=== PATIENT | female | born 1940 | race Caucasian/White ===

== ENCOUNTER 2017-01-15 08:58 | Outpatient (CLI) | payer MEDICARE, OTHER ==
[2017-01-15 09:31] LABS: Hemoglobin A1c 5.6 % (4.0-6.0)
[2017-01-15 09:37] LABS: ALT (SGPT) 15 U/L (8-55); AST (SGOT) 19 U/L (5-34); Albumin 3.5 g/dL (3.4-4.8); Alkaline Phosphatase 82 U/L (40-150); Anion Gap 14 mmol/L (10-20); BUN (Urea Nitrogen) 10 mg/dL (9.8-20.1); Bilirubin, Total 0.6 mg/dL (0.2-1.2); Calc. Creatinine Clearance 0 mL/min (70-130); Calcium 9.1 mg/dL (7.8-10.44); Carbon Dioxide 30 mmol/L (23-31); Cardiac Risk 3.6 (Less than 4.5); Chloride 97 mmol/L (98-107); Cholesterol 169 mg/dl (< 200 Desired); Estimated GFR-MDRD 82; Globulin 2.6 g/dL (2.4-3.5); Glucose 118 mg/dL (83-110); HDL Cholesterol 47 mg/dL (>60 Neg Risk); LDL Cholesterol, Calculated 101 mg/dL; Protein, Total 6.1 g/dL (6.0-8.3); Sodium 137 mmol/L (136-145); Triglycerides 104 mg/dL (Less than 150)
== END 2017-01-15 08:59 | disposition home or self-care (01) ==
LOC: MADLABBHPM 08:58
PROVIDERS: ATTEND Family Medicine
DX: E78.2 Mixed hyperlipidemia (principal); R73.09 Other abnormal glucose; E89.0 Postprocedural hypothyroidism
CPT/HCPCS: 36415; 80053; 80061; 83036; 84443

== ENCOUNTER 2019-12-03 13:44 | Emergency (ER) | payer MEDICARE, OTHER ==
[~2019-12-03 13:44] MED LIST: Sodium Chloride 0.9% 1,000 ML BAG ONE
[2019-12-03] MEDS ORDERED: Acetaminophen 500 MG TAB ONE (14:31)
[2019-12-03 14:35] LABS: #Basophils 0.1 thou/uL (0.0-0.2); #Lymphocytes 0.6 thou/uL (1.20-3.40); #Monocytes 0.6 thou/uL (0.11-0.59); #Neutrophils 7.6 thou/uL (1.40-6.50); %Basophils 0.7 % (0.0-1.0); %Eosinophils 0.5 % (0.0-10.0); %Lymphocytes 7.1 % (21.0-51.0); %Neutrophils 84.7 % (42.0-75.0); Hemoglobin 11.5 g/dL (12.0-16.0); Mean Corpuscular HGB CONC 32.6 g/dL (32.0-36.0); Mean Corpuscular Hemoglobin 30.5 pg (27.0-31.0); Mean Corpuscular Volume 93.4 fL (78.0-98.0); Mean Platelet Volume 6.1 fL (7.4-10.4); Platelet Count 294 thou/uL (130-400); RBC Distribution Width 13.5 % (11.5-14.5); Red Blood Cell (RBC) Count 3.78 mill/uL (4.20-5.40)
--- NOTE | 2019-12-03 14:41 | RAD ---
CHEST 1 VIEW: Date: 12/03/2019 HISTORY: Cough. COMPARISON: 02/10/2011. FINDINGS: Increased bronchovascular markings and evidence for bilateral vascular congestion with borderline car diomegaly. Subtle increased density over the right mid lung zone raising concern for minimal or early pneumonia. Costophrenic angle blunting bilaterally. Arthrosis changes of the left shoulder, progress freeman from prior study. IMPRESSION: Increased bronchovascular markings and evidence for some bilateral vascular congestion. Minimal cardi omegaly. Subtle area of minimal homogeneous opacity in the right mid lateral lung concern concerning for early pneumonia. Short-term follow-up suggested. POS: Melony
[2019-12-03 14:46] LABS: Bilirubin Negative (Negative); Blood, Urine Negative (Negative); Clarity Clear (Clear); Glucose, Urine (Dipstick) Negative (Negative); Leukocyte Negative (Negative); Nitrite Negative (Negative); Protein, Urine (Dipstick) Negative (Neg-Trace); Urobilinogen 0.2 mg/dL (Less than 2)
[2019-12-03 14:50] LABS: ALT (SGPT) 24 U/L (8-55); AST (SGOT) 24 U/L (5-34); Albumin 3.4 g/dL (3.4-4.8); Alkaline Phosphatase 71 U/L (40-110); Anion Gap 15 mmol/L (10-20); BUN (Urea Nitrogen) 16 mg/dL (9.8-20.1); Bilirubin, Total 0.5 mg/dL (0.2-1.2); Calc. Creatinine Clearance 0 mL/min (70-130); Calcium 8.5 mg/dL (7.8-10.44); Carbon Dioxide 29 mmol/L (23-31); Chloride 91 mmol/L (98-107); Estimated GFR-MDRD 83; Globulin 2.8 g/dL (2.4-3.5); Glucose 119 mg/dL (83-110); Potassium 3.9 mmol/L (3.5-5.1); Protein, Total 6.2 g/dL (6.0-8.3); Sodium 131 mmol/L (136-145)
--- NOTE | 2019-12-03 16:34 | CT ---
CT BRAIN 12/03/19 PROVIDED CLINICAL HISTORY: Altered mental status. FINDINGS: The ventricular system appears normal in size and morphology. There is no evidence for intracranial h emorrhage or mass effect. Chronic microvascular ischemic changes are seen involving the cerebral whit e matter. There is partial opacification of the right sided ethmoid air cells and maxillary sinus as well as near complete opacification of the right maxillary sinus. Vascular calcifications are seen. T he occipital skull is incompletely imaged on this examination. The visualized osseous structures demo nstrate no acute findings. IMPRESSION: 1. No evidence for intracranial hemorrhage or mass effect. 2. Paranasal sinus mucosal disease as described. POS: KATI
== END 2019-12-03 17:29 | disposition short-term general hospital (02) ==
LOC: MADERS 13:44
DX: J18.9 Pneumonia, unspecified organism (principal); Z20.828 Contact with and (suspected) exposure to other viral communicable diseases; I10 Essential (primary) hypertension; E78.5 Hyperlipidemia, unspecified; E78.00 Pure hypercholesterolemia, unspecified; Z79.899 Other long term (current) drug therapy
CPT/HCPCS: 51701; 70450; 71045; 80053; 81003; 83605; 85025; 87040; 87086; 87633; 87798 ×2; 87804 ×2; 96365; 96366; 99285; J1956; U0002; 87635; A4353; J7050

== ENCOUNTER 2020-01-03 10:13 | Outpatient (CLI) | payer MEDICARE, OTHER ==
[2020-01-03 10:52] LABS: #Eosinphils 0.2 thou/uL (0.0-0.7); #Lymphocytes 0.9 thou/uL (1.20-3.40); #Monocytes 0.4 thou/uL (0.11-0.59); #Neutrophils 3.6 thou/uL (1.40-6.50); %Basophils 0.8 % (0.0-1.0); %Eosinophils 4.3 % (0.0-10.0); %Lymphocytes 17.4 % (21.0-51.0); %Monocytes 8.3 % (0.0-10.0); %Neutrophils 69.2 % (42.0-75.0); Hemoglobin 10.7 g/dL (12.0-16.0); Mean Corpuscular HGB CONC 32.1 g/dL (32.0-36.0); Mean Corpuscular Hemoglobin 29.8 pg (27.0-31.0); Mean Platelet Volume 6.1 fL (7.4-10.4); Platelet Count 361 thou/uL (130-400); RBC Distribution Width 13.7 % (11.5-14.5); White Blood Cell (WBC) Count 5.1 thou/uL (4.8-10.8)
[2020-01-03 10:57] LABS: ALT (SGPT) 22 U/L (8-55); AST (SGOT) 20 U/L (5-34); Albumin 3.2 g/dL (3.4-4.8); Alkaline Phosphatase 81 U/L (40-110); Anion Gap 13 mmol/L (10-20); BUN (Urea Nitrogen) 17 mg/dL (9.8-20.1); Bilirubin, Total 0.3 mg/dL (0.2-1.2); Calc. Creatinine Clearance 0 mL/min (70-130); Calcium 8.4 mg/dL (7.8-10.44); Carbon Dioxide 26 mmol/L (23-31); Cardiac Risk 3.2 (Less than 4.5); Chloride 97 mmol/L (98-107); Cholesterol 179 mg/dl (< 200 Desired); Estimated GFR-MDRD 86; Globulin 2.6 g/dL (2.4-3.5); Glucose 134 mg/dL (83-110); HDL Cholesterol 56 mg/dL (>60 Neg Risk); LDL Cholesterol, Calculated 104 mg/dL; Potassium 4.2 mmol/L (3.5-5.1); Protein, Total 5.8 g/dL (6.0-8.3); Sodium 132 mmol/L (136-145); Triglycerides 93 mg/dL (Less than 150)
--- NOTE | 2020-01-03 11:15 | RAD ---
Right RIBS 3 views HISTORY: Fall. Injury. FINDINGS: No displaced rib fracture or pneumothorax are demonstrated.
--- NOTE | 2020-01-03 12:10 | RAD ---
EXAM: CHEST ONE VIEW HISTORY: Injury after fall 2 days ago. COMPARISON: 12/10/2019 FINDINGS: Cardiac silhouette is mildly enlarged. Pulmonary vasculature is within normal limits. Calcified granu brigido is again seen in the right upper lung zone. There is persistent blunting of the right lateral costophrenic angle, but this is also seen on the prior study in 2011 and is likely related to pleural and parenchymal scarring. No new area of consolidation or pleural effusion is seen. Severe left glenohumeral osteoarthropathy is present with degenerative changes noted in the spine. Remote left-si ded rib fracture is present. Vascular calcifications are seen in thoracic aorta. There has been no interval change compared to prior exam. IMPRESSION: 1. No acute cardiopulmonary process. 2. Mild chronic lung changes. 3. Mild cardiomegaly.
--- NOTE | 2020-01-03 12:59 | RAD ---
LEFT RIB SERIES: HISTORY: Fall, left-sided rib pain. FINDINGS/IMPRESSION: There are marked degenerative changes in the shoulder joint. There are fractures involving the left 7th and 8th ribs. POS: [facility]
== END 2020-01-03 10:14 | disposition home or self-care (01) ==
LOC: MADRAD 10:13
PROVIDERS: ATTEND Family Medicine
DX: I50.20 Unspecified systolic (congestive) heart failure (principal); D72.819 Decreased white blood cell count, unspecified; I10 Essential (primary) hypertension; E78.2 Mixed hyperlipidemia; E89.0 Postprocedural hypothyroidism; R07.81 Pleurodynia; S22.42XA Multiple fractures of ribs, left side, initial encounter for closed fracture; J98.4 Other disorders of lung; I51.7 Cardiomegaly; M19.019 Primary osteoarthritis, unspecified shoulder; W18.30XA Fall on same level, unspecified, initial encounter
CPT/HCPCS: 36415; 71045; 80053; 80061; 84443; 85025

== ENCOUNTER 2020-01-19 11:50 | Emergency (ER) | payer MEDICARE, OTHER ==
[2020-01-19 12:18] LABS: #Basophils 0.1 thou/uL (0.0-0.2); #Eosinphils 0.2 thou/uL (0.0-0.7); #Monocytes 0.5 thou/uL (0.11-0.59); #Neutrophils 3.3 thou/uL (1.40-6.50); %Basophils 1.2 % (0.0-1.0); %Eosinophils 3.1 % (0.0-10.0); %Lymphocytes 20.2 % (21.0-51.0); %Monocytes 10.1 % (0.0-10.0); %Neutrophils 65.4 % (42.0-75.0); Hemoglobin 10.3 g/dL (12.0-16.0); Mean Corpuscular HGB CONC 31.5 g/dL (32.0-36.0); Mean Corpuscular Hemoglobin 28.8 pg (27.0-31.0); Mean Corpuscular Volume 91.4 fL (78.0-98.0); Mean Platelet Volume 5.9 fL (7.4-10.4); Platelet Count 324 thou/uL (130-400); RBC Distribution Width 13.3 % (11.5-14.5); Red Blood Cell (RBC) Count 3.58 mill/uL (4.20-5.40); White Blood Cell (WBC) Count 5.1 thou/uL (4.8-10.8)
--- NOTE | 2020-01-19 12:19 | CT ---
CT OF THE BRAIN WITHOUT CONTRAST: Date: 01/19/2020 INDICATION: History of 79-year-old female with left-sided weakness since 0630 hours this morning. COMPARISON: Prior exam dated 12/10/2019. FINDINGS: Again seen is mild generalized cerebral and cerebellar atrophy. There is moderate to severe chronic s mall vessel white matter ischemic change. Septum pellucidum and third ventricle are midline. No defin ite acute infarct, hemorrhage, or hydrocephalus is present. There is lessening of the air fluid level s seen involving the right maxillary sinus with improvement of the mucosal thickening involving the p aranasal sinuses. Mastoid air cells are clear. IMPRESSION: 1. No acute intracranial abnormality. 2. Stable chronic small vessel white matter ischemic change. 3. Improving paranasal sinus disease. POS: ANU
[2020-01-19] MEDS ORDERED: Aspirin 300 MG Suppository ONE (12:32)
[2020-01-19 12:37] LABS: ALT (SGPT) 36 U/L (8-55); AST (SGOT) 30 U/L (5-34); Albumin 3.3 g/dL (3.4-4.8); Alkaline Phosphatase 85 U/L (40-110); Anion Gap 13 mmol/L (10-20); BUN (Urea Nitrogen) 17 mg/dL (9.8-20.1); Bilirubin, Total 0.4 mg/dL (0.2-1.2); CK (CPK) 93 U/L (29-168); Calc. Creatinine Clearance 0 mL/min (70-130); Calcium 8.3 mg/dL (7.8-10.44); Carbon Dioxide 26 mmol/L (23-31); Chloride 95 mmol/L (98-107); Estimated GFR-MDRD 83; Globulin 2.6 g/dL (2.4-3.5); Glucose 97 mg/dL (83-110); Potassium 4.1 mmol/L (3.5-5.1); Protein, Total 5.9 g/dL (6.0-8.3); Sodium 130 mmol/L (136-145)
[2020-01-19 12:38] LABS: INR-International Normal Ratio 1.3; PTT 31.3 sec (22.9-36.1); Prothrombin Time 16.3 sec (12.0-14.7)
--- NOTE | 2020-01-19 12:47 | CT ---
CT arteriogram neck with IV contrast and 3-D imaging CT arteriogram head with IV contrast and 3-D imaging HISTORY: Left-sided weakness. CVA. FINDINGS: Good contrast opacification of the aortic arch with bovine origin of the great vessels and arterial calcification. The descending aorta is diffusely dilated up to 5.0 cm. Good flow into each carotid and vertebral system. At the right carotid bifurcation, there is prominent calcification. Internal carotid artery is widely patent. There is high-grade stenosis at the origin of the external carotid artery. At the left carotid bifurcation, mild calcification is present without significant stenosis. [place] is intact. Calcification of the supraclinoid ICAs. No focal aneurysm, stenosis, or t hrombosis. No enhancing brain lesions evident. Inferior images show calcified plaque within the anterior aspect of the upper right hemithorax. Small amount of fluid layers within the dependent portion of the right maxillary sinus. IMPRESSION : No acute vascular abnormalities are demonstrated. Diffuse dilatation of the ascending aorta up to 5.0 cm. Atherosclerosis. Incidental note of stenosis at the origin of the right external carotid artery. Inte rnal carotid arteries are patent. Right maxillary sinusitis. Findings were called to Dr. Rich in the [place] emergency department 1235 hours. Code CR.
--- NOTE | 2020-01-19 12:48 | RAD ---
Chest one view HISTORY: Altered mental status. Dyspnea. COMPARISON: 01/03/2020. FINDINGS: Cardiac silhouette remains magnified and enlarged. Pulmonary vasculature remains upper limi ts of normal. Mediastinum is midline with aortic calcification. Calcified granulomata are consistent with healed gr anulomatous disease. No lobar consolidation or evidence of pneumothorax. There are prominent degenerative changes of each shoulder. air sampling and monitoring leads overlie the chest. IMPRESSION : Borderline pulmonary vascular congestion and other chronic-type findings are stable. No active cardiopulmonary abnormalities are demonstrated.
[2020-01-19] MEDS ORDERED: Iopamidol 370 76% 125 ML VIAL FS ONE (13:14)
== END 2020-01-19 12:50 | disposition short-term general hospital (02) ==
LOC: MADERS 11:50
DX: I82.462 Acute embolism and thrombosis of left calf muscular vein (principal); I25.2 Old myocardial infarction; E03.9 Hypothyroidism, unspecified; E78.5 Hyperlipidemia, unspecified; E78.00 Pure hypercholesterolemia, unspecified; I10 Essential (primary) hypertension; Z79.899 Other long term (current) drug therapy
CPT/HCPCS: 36415; 36416; 70450; 70496; 70498; 71045; 80053; 82550; 84484; 85025; 85610; 85730; 93005; 94760; Q9967

== ENCOUNTER 2020-02-11 09:49 | Outpatient (CLI) | payer MEDICARE, OTHER ==
[2020-02-11 10:28] LABS: Anion Gap 17 mmol/L (10-20); BUN (Urea Nitrogen) 12 mg/dL (9.8-20.1); Calc. Creatinine Clearance 0 mL/min (70-130); Calcium 9.4 mg/dL (7.8-10.44); Carbon Dioxide 24 mmol/L (23-31); Chloride 96 mmol/L (98-107); Estimated GFR-MDRD 82; Glucose 92 mg/dL (83-110); Potassium 4.4 mmol/L (3.5-5.1); Sodium 133 mmol/L (136-145)
== END 2020-02-11 09:50 | disposition home or self-care (01) ==
LOC: MADLABSP 09:49
PROVIDERS: ATTEND Family Medicine
DX: R60.0 Localized edema (principal)
CPT/HCPCS: 80048

== ENCOUNTER 2020-02-28 17:15 | Inpatient (IN) | payer MEDICARE, OTHER ==
[2020-02-28] MEDS: Mirtazapine 15 MG TAB PO SCH (21:16)
[2020-02-28] MEDS: Atorvastatin Calcium 10 MG TAB PO SCH (21:16)
[2020-02-28] MEDS: Carvedilol 3.125 MG TAB PO SCH (21:17)
[2020-02-28] MEDS: Heparin 5,000 UNITS/ML VIAL SC SCH (21:17)
[2020-02-29] MEDS: Acetaminophen 325 MG TAB PO PRN (01:37)
[2020-02-29] MEDS: Levothyroxine Sodium 125 MCG TAB PO SCH (05:43)
[2020-02-29] MEDS ORDERED: Furosemide 40 MG TAB PO SCH (06:00)
[2020-02-29] MEDS: Aspirin 81 mg Enteric Coated Tablet PO SCH ×2 (08:36→08:39)
[2020-02-29] MEDS: Carvedilol 3.125 MG TAB PO SCH ×2 (08:36→19:53)
[2020-02-29] MEDS: Lisinopril 5 MG TAB PO SCH (08:36)
[2020-02-29] MEDS: Furosemide 40 MG TAB PO SCH (08:38)
[2020-02-29] MEDS: Oxybutynin ER 5 MG TAB PO SCH (08:39)
[2020-02-29] MEDS: Heparin 5,000 UNITS/ML VIAL SC SCH ×3 (08:40→19:53)
--- NOTE | 2020-02-29 08:57 | HP ---
REASON FOR ADMISSION: Skilled rehab in [facility] after recent hospitalization. HISTORY OF PRESENT ILLNESS AND HOSPITAL COURSE: Ms. Hall is an 79-year-old female with significant history of dementia, hypertension, hypothyroidism, dyslipidemia, and systolic heart failure. The patient was brought to the ER on 02/22/2020 for altered mental status/unresponsiveness. On further evaluation, she was found to be severely hyponatremic. Her hyponatremia was attributed to multiple factors. She has been on diuretics for persistent volume retention and her Lasix has been titrated up lately for worsening bilateral leg edema and increasing weight. She was also reported by the family that she is not eating much lately despite of the mirtazapine use. Her MRI of the brain did not show any acute abnormalities. Nephrology was consulted and was diagnosed to have SIADH. The patient was treated appropriately in the hospital and was deemed hemodynamically stable to be discharged thereafter. Her sodium improved significantly from admitting sodium level at 121 to 134 upon discharge. The patient was treated with fluid restriction and increased solute intake. There was a recommendation not to be on thiazide, but to continue on Lasix. Of note, the patient had never been on thiazide per home medication, but has been only on Lasix. The patient was severely deconditioned and deemed to benefit further for skilled rehab prior to going back to the home environment,thus she was transferred to [facility]. When admitted to [facility] for skilled rehab, the patient was awake, alert, confused, but able to answer simple questions and express her needs. She is on pureed diet and nectar thickened liquids per transfer order. She was eating dinner on her own when seen. States that she was happy she is in [place] again. No other issues at this time. PAST MEDICAL HISTORY: Hypertension; hypothyroidism; dyslipidemia; systolic congestive heart failure; dementia; adult failure to thrive; borderline diabetes , on dietary management only; history of degenerative joint disease; PAD, on long- term use of antithrombotics/antiplatelet. Overactive bladder, anemia of chronic illness, esophageal stricture, paroxysmal atrial fibrillation in 01/2020, and TIA. PAST SURGICAL HISTORY: Laparoscopic colon resection in 2008, cataract surgery, esophageal dilatation, colonoscopy, found to have polyps, cardiac cath by Dr. Kwon on 03/30/2014. FAMILY HISTORY: Mother is , diabetic. Father is diseased, unknown. Siblings with four brothers and four sisters of an unknown health condition. SOCIAL HISTORY: The patient is . She lives with her , who serves as her primary caregiver. The patient's daughter, Ira and her son-in-law are current primary caretakers of both patient and spouse. She is nonsmoker. Denies alcohol intake. Denies illicit drug use. ALLERGIES: TO CEPHALEXIN, HIVES; ERYTHROMYCIN, STIFF JOINTS; DIPHENHYDRAMINE, HIVES; DOXYCYCLINE; THEOPHYLLINE; TUSSIONEX PENNKINETIC; TETRACYCLINE _; PENICILLIN. REVIEW OF SYSTEMS: Unobtainable secondary to confusion/dementia. CURRENT MEDICATIONS: 1. Lasix 40 mg every two days. 2. Aspirin 81 mg p.o. daily. 3. Atorvastatin 20 mg p.o. daily. 4. Levothyroxine 125 mcg p.o. daily. 5. Mirtazapine 7.5 mg p.o. at bedtime. 6. Coreg 3.125 mg p.o. b.i.d. 7. Lisinopril 2.5 mg p.o. daily. 8. Heparin 5000 units subcu t.i.d. 9. Oxybutynin ER 10 mg p.o. daily. PHYSICAL EXAMINATION: VITAL SIGNS: Blood pressure 130/74, temperature 99.8, pulse 83, respirations 20, and O2 sats 90% on room air. GENERAL: The patient is awake, alert, confused, frail looking elderly, she knows her name and she knows that she is at [facility]. Appears comfortable on exam, not in acute distress. No family is present at the time of examination. HEENT: Normocephalic and atraumatic. PERRL. Intact EOM. Anicteric sclerae. Oral mucosa is moist. Tongue in the midline. No tremors. No oral lesions. NECK: Supple. No LAD. CHEST: Normal excursion. Clear to auscultation bilaterally. CARDIAC: RRR. Normal S1 and S2. ABDOMEN: Flat, soft. Normoactive bowel sounds. Nondistended, nontender. No rebound or guarding. Negative CVA tenderness bilaterally. EXTREMITIES: No edema. No cyanosis. NEUROLOGIC: Spontaneous speech. Awake and alert. Gait, unsteady. Moves all extremities symmetrically. PSYCHIATRIC: She is calm, pleasant, cooperative with appropriate interactions. SKIN: Intact, moist and warm with huge hematoma noted on the right dorsal surface of the hand extending toward the distal forearm. No swelling noted. ASSESSMENT: 1. Physical deconditioning secondary to general weakness. 2. Acute metabolic encephalopathy secondary to hyponatremia.Improved 3. Oral phase dysphagia. 4. Hyponatremia, diuretic-induced. 5.Moderate calorie malnutrition. 6. Systolic congestive heart failure, compensated. 7. Hypertension, stable. 8. Alzheimer dementia, advancing. 9. Hyperlipidemia. 10. Peripheral artery disease, on long-term use of antithrombotics. 11. Hypothyroidism. PLAN: 1. The patient is admitted to [facility] for skilled rehab. 2. PT, OT, and ST eval and treat. Diet, pureed with nectar thickened. Aspiration precautions. Per daughter, the patient has been eating regular diet at home and thin liquids, tolerating well. We will consider advancing the diet depending on Speech Therapy recommendations. 3. Continue all current medications as modified per list. 4. Deep venous thrombosis prophylaxis with heparin. 5. Further recommendations depending on the hospital course. Estimated length of stay: 2-3 weeks. Disposition, home with spouse and daughter. Code status, DNAR as confirmed by the patient's spouse, Mr. Rolf Hall and daughter, Ira Boles on the phone today. Job ID: [id number]
[2020-02-29] MEDS: Mirtazapine 15 MG TAB PO SCH (19:51)
[2020-02-29] MEDS: Atorvastatin Calcium 10 MG TAB PO SCH (19:51)
[2020-03-01] MEDS: Levothyroxine Sodium 125 MCG TAB PO SCH (06:11)
[2020-03-01] MEDS: Acetaminophen 325 MG TAB PO PRN (09:49)
[2020-03-01] MEDS: Carvedilol 3.125 MG TAB PO SCH ×2 (09:52→20:51)
[2020-03-01] MEDS: Oxybutynin ER 5 MG TAB PO SCH (09:53)
[2020-03-01] MEDS: Heparin 5,000 UNITS/ML VIAL SC SCH ×3 (09:53→20:59)
[2020-03-01] MEDS: Lisinopril 5 MG TAB PO SCH (09:53)
[2020-03-01] MEDS: Atorvastatin Calcium 10 MG TAB PO SCH (20:51)
[2020-03-01] MEDS: Mirtazapine 15 MG TAB PO SCH (20:51)
[2020-03-02] MEDS: Levothyroxine Sodium 125 MCG TAB PO SCH (05:45)
[2020-03-02] MEDS: Carvedilol 3.125 MG TAB PO SCH ×2 (09:43→21:57)
[2020-03-02] MEDS: Heparin 5,000 UNITS/ML VIAL SC SCH ×3 (09:43→21:57)
[2020-03-02] MEDS: Aspirin 81 mg Enteric Coated Tablet PO SCH (09:43)
[2020-03-02] MEDS: Furosemide 40 MG TAB PO SCH (09:43)
[2020-03-02] MEDS: Lisinopril 5 MG TAB PO SCH (09:44)
[2020-03-02] MEDS: Oxybutynin ER 5 MG TAB PO SCH (09:45)
[2020-03-02] MEDS ORDERED: Bisacodyl 10 MG SUPP PR PRN (19:02)
[2020-03-02] MEDS: ALPRAZolam 0.25 MG TAB PO PRN (20:16)
[2020-03-02] MEDS: Atorvastatin Calcium 10 MG TAB PO SCH (21:56)
[2020-03-02] MEDS: Mirtazapine 15 MG TAB PO SCH (21:57)
[2020-03-02] MEDS: Senokot S 8.6-50 MG TAB PO SCH (21:57)
[2020-03-03] MEDS: Acetaminophen 325 MG TAB PO PRN ×2 (03:32→21:32)
[2020-03-03] MEDS: Levothyroxine Sodium 125 MCG TAB PO SCH (06:11)
[2020-03-03] MEDS: Heparin 5,000 UNITS/ML VIAL SC SCH ×3 (08:47→21:31)
[2020-03-03] MEDS: Carvedilol 3.125 MG TAB PO SCH ×2 (08:52→21:30)
[2020-03-03] MEDS: Aspirin 81 mg Enteric Coated Tablet PO SCH (08:52)
[2020-03-03] MEDS: Oxybutynin ER 5 MG TAB PO SCH (08:53)
[2020-03-03] MEDS: Senokot S 8.6-50 MG TAB PO SCH ×2 (08:53→21:30)
[2020-03-03] MEDS: Lisinopril 5 MG TAB PO SCH (08:53)
[2020-03-03] MEDS: Atorvastatin Calcium 10 MG TAB PO SCH (21:30)
[2020-03-03] MEDS: Mirtazapine 15 MG TAB PO SCH (21:31)
[2020-03-03] MEDS: ALPRAZolam 0.25 MG TAB PO PRN (21:32)
[2020-03-04] MEDS: Levothyroxine Sodium 125 MCG TAB PO SCH (05:44)
[2020-03-04 05:51] LABS: Anion Gap 14 mmol/L (10-20); BUN (Urea Nitrogen) 23 mg/dL (9.8-20.1); Calc. Creatinine Clearance 52 mL/min (70-130); Calcium 8.4 mg/dL (7.8-10.44); Carbon Dioxide 27 mmol/L (23-31); Chloride 97 mmol/L (98-107); Estimated GFR-MDRD 71; Glucose 88 mg/dL (83-110); Potassium 3.5 mmol/L (3.5-5.1); Sodium 134 mmol/L (136-145)
[2020-03-04] MEDS: Carvedilol 3.125 MG TAB PO SCH ×2 (08:19→21:39)
[2020-03-04] MEDS: Aspirin 81 mg Enteric Coated Tablet PO SCH (08:19)
[2020-03-04] MEDS: Lisinopril 5 MG TAB PO SCH (08:20)
[2020-03-04] MEDS: Senokot S 8.6-50 MG TAB PO SCH ×2 (08:20→21:39)
[2020-03-04] MEDS: Heparin 5,000 UNITS/ML VIAL SC SCH ×3 (08:21→21:38)
[2020-03-04] MEDS: Oxybutynin ER 5 MG TAB PO SCH (08:22)
[2020-03-04] MEDS ORDERED: Furosemide 20 MG TAB PO SCH (09:00)
[2020-03-04] MEDS: Mirtazapine 15 MG TAB PO SCH (21:37)
[2020-03-04] MEDS: Atorvastatin Calcium 10 MG TAB PO SCH (21:37)
[2020-03-05] MEDS: Levothyroxine Sodium 125 MCG TAB PO SCH (05:43)
[2020-03-05] MEDS: Aspirin 81 mg Enteric Coated Tablet PO SCH (08:15)
[2020-03-05] MEDS: Carvedilol 3.125 MG TAB PO SCH ×2 (08:15→20:46)
[2020-03-05] MEDS: Lisinopril 5 MG TAB PO SCH (08:15)
[2020-03-05] MEDS: Senokot S 8.6-50 MG TAB PO SCH ×2 (08:15→20:45)
[2020-03-05] MEDS: Oxybutynin ER 5 MG TAB PO SCH (08:18)
[2020-03-05] MEDS: Heparin 5,000 UNITS/ML VIAL SC SCH ×3 (08:19→20:47)
[2020-03-05] MEDS: Acetaminophen 325 MG TAB PO PRN (20:44)
[2020-03-05] MEDS: ALPRAZolam 0.25 MG TAB PO PRN (20:44)
[2020-03-05] MEDS: Atorvastatin Calcium 10 MG TAB PO SCH (20:44)
[2020-03-05] MEDS: Mirtazapine 15 MG TAB PO SCH (20:45)
[2020-03-06] MEDS: Levothyroxine Sodium 125 MCG TAB PO SCH (05:41)
[2020-03-06] MEDS: Oxybutynin ER 5 MG TAB PO SCH (08:57)
[2020-03-06] MEDS: Aspirin 81 mg Enteric Coated Tablet PO SCH (08:57)
[2020-03-06] MEDS: Carvedilol 3.125 MG TAB PO SCH ×2 (08:57→21:31)
[2020-03-06] MEDS: Heparin 5,000 UNITS/ML VIAL SC SCH ×3 (08:58→21:31)
[2020-03-06] MEDS: Senokot S 8.6-50 MG TAB PO SCH ×2 (08:58→21:31)
[2020-03-06] MEDS: Lisinopril 5 MG TAB PO SCH (08:58)
[2020-03-06] MEDS: Atorvastatin Calcium 10 MG TAB PO SCH (21:31)
[2020-03-06] MEDS: Mirtazapine 15 MG TAB PO SCH (21:31)
[2020-03-07] MEDS: Levothyroxine Sodium 125 MCG TAB PO SCH (05:48)
[2020-03-07] MEDS: Senokot S 8.6-50 MG TAB PO SCH ×2 (08:35→20:51)
[2020-03-07] MEDS: Aspirin 81 mg Enteric Coated Tablet PO SCH (08:36)
[2020-03-07] MEDS: Lisinopril 5 MG TAB PO SCH (08:36)
[2020-03-07] MEDS: Heparin 5,000 UNITS/ML VIAL SC SCH ×3 (08:37→20:55)
[2020-03-07] MEDS: Oxybutynin ER 5 MG TAB PO SCH ×2 (08:39→11:40)
[2020-03-07] MEDS ORDERED: Oxybutynin 5 MG TAB PO SCH ×2 (12:00→21:00)
[2020-03-07] MEDS: Atorvastatin Calcium 10 MG TAB PO SCH (20:51)
[2020-03-07] MEDS: Mirtazapine 15 MG TAB PO SCH (20:51)
[2020-03-07] MEDS: Oxybutynin 5 MG TAB PO SCH (20:52)
[2020-03-07] MEDS: Melatonin 3 MG TAB PO PRN (22:44)
[2020-03-07] MEDS: Fluticasone Propionate Nasal Spray 16 gm Bottle NASAL PRN (22:48)
[2020-03-08] MEDS: Acetaminophen 325 MG TAB PO PRN (01:53)
[2020-03-08] MEDS: Melatonin 3 MG TAB PO PRN (01:54)
[2020-03-08] MEDS: Levothyroxine Sodium 125 MCG TAB PO SCH (05:38)
[2020-03-08] MEDS: Lisinopril 5 MG TAB PO SCH (07:57)
[2020-03-08] MEDS: Aspirin 81 mg Enteric Coated Tablet PO SCH (08:09)
[2020-03-08] MEDS: Oxybutynin 5 MG TAB PO SCH ×2 (08:09→21:39)
[2020-03-08] MEDS: Heparin 5,000 UNITS/ML VIAL SC SCH ×3 (08:09→21:38)
[2020-03-08] MEDS: Senokot S 8.6-50 MG TAB PO SCH ×2 (08:09→21:39)
[2020-03-08] MEDS: Loratadine 10 MG TAB PO PRN (08:09)
[2020-03-08] MEDS: Fluticasone Propionate Nasal Spray 16 gm Bottle NASAL PRN (08:10)
[2020-03-08] MEDS: Atorvastatin Calcium 10 MG TAB PO SCH (21:37)
[2020-03-08] MEDS: Mirtazapine 15 MG TAB PO SCH (21:38)
[2020-03-09] MEDS: Levothyroxine Sodium 125 MCG TAB PO SCH (05:58)
[2020-03-09] MEDS: Aspirin 81 mg Enteric Coated Tablet PO SCH (08:15)
[2020-03-09] MEDS: Senokot S 8.6-50 MG TAB PO SCH ×2 (08:15→20:05)
[2020-03-09] MEDS: Loratadine 10 MG TAB PO PRN (08:15)
[2020-03-09] MEDS: Oxybutynin 5 MG TAB PO SCH ×2 (08:16→20:05)
[2020-03-09] MEDS: Heparin 5,000 UNITS/ML VIAL SC SCH ×3 (08:16→20:06)
[2020-03-09] MEDS: Lisinopril 5 MG TAB PO SCH (08:16)
[2020-03-09] MEDS: Fluticasone Propionate Nasal Spray 16 gm Bottle NASAL PRN (08:17)
[2020-03-09] MEDS: Acetaminophen 325 MG TAB PO PRN (17:15)
[2020-03-09] MEDS: Mirtazapine 15 MG TAB PO SCH (20:05)
[2020-03-09] MEDS: Atorvastatin Calcium 10 MG TAB PO SCH (20:05)
[2020-03-10] MEDS: Levothyroxine Sodium 125 MCG TAB PO SCH (06:05)
[2020-03-10] MEDS: Oxybutynin 5 MG TAB PO SCH ×2 (08:13→20:32)
[2020-03-10] MEDS: Aspirin 81 mg Enteric Coated Tablet PO SCH (08:13)
[2020-03-10] MEDS: Senokot S 8.6-50 MG TAB PO SCH ×2 (08:13→20:33)
[2020-03-10] MEDS: Heparin 5,000 UNITS/ML VIAL SC SCH ×3 (08:18→20:32)
[2020-03-10] MEDS: Lisinopril 5 MG TAB PO SCH (08:22)
[2020-03-10 15:21] LABS: Anion Gap 15 mmol/L (10-20); BUN (Urea Nitrogen) 13 mg/dL (9.8-20.1); Calc. Creatinine Clearance 43 mL/min (70-130); Calcium 8.9 mg/dL (7.8-10.44); Carbon Dioxide 28 mmol/L (23-31); Chloride 96 mmol/L (98-107); Estimated GFR-MDRD 61; Glucose 141 mg/dL (83-110); Potassium 4.1 mmol/L (3.5-5.1); Sodium 135 mmol/L (136-145)
[2020-03-10] MEDS: Mirtazapine 15 MG TAB PO SCH (20:32)
[2020-03-10] MEDS: Atorvastatin Calcium 10 MG TAB PO SCH (20:33)
[2020-03-11] MEDS: Levothyroxine Sodium 125 MCG TAB PO SCH (05:31)
[2020-03-11] MEDS: Senokot S 8.6-50 MG TAB PO SCH ×2 (09:31→20:12)
[2020-03-11] MEDS: Lisinopril 5 MG TAB PO SCH (09:31)
[2020-03-11] MEDS: Heparin 5,000 UNITS/ML VIAL SC SCH ×3 (09:31→20:12)
[2020-03-11] MEDS: Aspirin 81 mg Enteric Coated Tablet PO SCH (09:32)
[2020-03-11] MEDS: Oxybutynin 5 MG TAB PO SCH ×2 (09:32→20:12)
[2020-03-11] MEDS: Fluticasone Propionate Nasal Spray 16 gm Bottle NASAL PRN (09:42)
[2020-03-11] MEDS: Loratadine 10 MG TAB PO PRN (09:42)
[2020-03-11] MEDS: ALPRAZolam 0.25 MG TAB PO PRN ×2 (09:42→21:22)
[2020-03-11] MEDS: Mirtazapine 15 MG TAB PO SCH (20:13)
[2020-03-11] MEDS: Melatonin 3 MG TAB PO PRN (20:13)
[2020-03-11] MEDS: Atorvastatin Calcium 10 MG TAB PO SCH (20:13)
[2020-03-11] MEDS: Acetaminophen 325 MG TAB PO PRN (21:22)
[2020-03-11] MEDS ORDERED: Carbamide Peroxide 6.5% Otic Drops 15 ml Bottle ONE (22:19)
[2020-03-11] MEDS ORDERED: Carbamide Peroxide 6.5% Otic Drops 15 ml Bottle FS PRN (22:19)
[2020-03-12] MEDS: Levothyroxine Sodium 125 MCG TAB PO SCH (05:22)
[2020-03-12] MEDS: Aspirin 81 mg Enteric Coated Tablet PO SCH (08:50)
[2020-03-12] MEDS: Lisinopril 5 MG TAB PO SCH (08:50)
[2020-03-12] MEDS: Heparin 5,000 UNITS/ML VIAL SC SCH ×3 (08:50→21:02)
[2020-03-12] MEDS: Acetaminophen 325 MG TAB PO PRN (08:51)
[2020-03-12] MEDS: Oxybutynin 5 MG TAB PO SCH ×2 (08:51→20:36)
[2020-03-12] MEDS: Senokot S 8.6-50 MG TAB PO SCH ×2 (08:51→20:35)
[2020-03-12] MEDS: Loratadine 10 MG TAB PO PRN (08:51)
[2020-03-12] MEDS: ALPRAZolam 0.25 MG TAB PO PRN (08:52)
[2020-03-12] MEDS ORDERED: Carvedilol 3.125 MG TAB PO SCH ×2 (09:45→17:00)
[2020-03-12] MEDS: Carvedilol 3.125 MG TAB PO SCH (17:15)
[2020-03-12] MEDS: Atorvastatin Calcium 10 MG TAB PO SCH (20:36)
[2020-03-12] MEDS: Mirtazapine 15 MG TAB PO SCH (20:36)
[2020-03-13] MEDS: Levothyroxine Sodium 125 MCG TAB PO SCH (05:50)
[2020-03-13] MEDS: Lisinopril 5 MG TAB PO SCH (07:59)
[2020-03-13] MEDS: Aspirin 81 mg Enteric Coated Tablet PO SCH (07:59)
[2020-03-13] MEDS: Senokot S 8.6-50 MG TAB PO SCH ×2 (08:00→20:36)
[2020-03-13] MEDS: Carvedilol 3.125 MG TAB PO SCH ×2 (08:01→17:17)
[2020-03-13] MEDS: Oxybutynin 5 MG TAB PO SCH ×2 (08:04→20:37)
[2020-03-13] MEDS: Heparin 5,000 UNITS/ML VIAL SC SCH ×3 (08:06→20:37)
[2020-03-13] MEDS ORDERED: Carbamide Peroxide 6.5% Otic Drops 15 ml Bottle EA EAR PRN (13:06)
[2020-03-13] MEDS: Atorvastatin Calcium 10 MG TAB PO SCH (20:36)
[2020-03-13] MEDS: Mirtazapine 15 MG TAB PO SCH (20:36)
[2020-03-13] MEDS: ALPRAZolam 0.25 MG TAB PO PRN (20:36)
[2020-03-13] MEDS: Acetaminophen 325 MG TAB PO PRN (20:36)
[2020-03-14] MEDS: Levothyroxine Sodium 125 MCG TAB PO SCH (05:24)
[2020-03-14] MEDS: Oxybutynin 5 MG TAB PO SCH ×2 (08:29→20:43)
[2020-03-14] MEDS: Aspirin 81 mg Enteric Coated Tablet PO SCH (08:29)
[2020-03-14] MEDS: Lisinopril 5 MG TAB PO SCH ×2 (08:29→09:00)
[2020-03-14] MEDS: Senokot S 8.6-50 MG TAB PO SCH ×2 (08:29→20:43)
[2020-03-14] MEDS: Carvedilol 3.125 MG TAB PO SCH ×2 (08:29→18:03)
[2020-03-14] MEDS: Heparin 5,000 UNITS/ML VIAL SC SCH ×3 (08:29→20:42)
[2020-03-14] MEDS: Atorvastatin Calcium 10 MG TAB PO SCH (20:42)
[2020-03-14] MEDS: Mirtazapine 15 MG TAB PO SCH (20:43)
[2020-03-15] MEDS: Levothyroxine Sodium 125 MCG TAB PO SCH (05:43)
[2020-03-15] MEDS: Aspirin 81 mg Enteric Coated Tablet PO SCH (08:00)
[2020-03-15] MEDS: Heparin 5,000 UNITS/ML VIAL SC SCH ×3 (08:00→20:04)
[2020-03-15] MEDS: Senokot S 8.6-50 MG TAB PO SCH ×2 (08:00→20:05)
[2020-03-15] MEDS: Oxybutynin 5 MG TAB PO SCH ×2 (08:00→20:05)
[2020-03-15] MEDS: Lisinopril 5 MG TAB PO SCH (08:00)
[2020-03-15] MEDS: Carvedilol 3.125 MG TAB PO SCH ×2 (08:00→17:03)
[2020-03-15] MEDS: Atorvastatin Calcium 10 MG TAB PO SCH (20:04)
[2020-03-15] MEDS: ALPRAZolam 0.25 MG TAB PO PRN (20:04)
[2020-03-15] MEDS: Mirtazapine 15 MG TAB PO SCH (20:05)
[2020-03-15] MEDS: Melatonin 3 MG TAB PO PRN (20:05)
[2020-03-15] MEDS: Acetaminophen 325 MG TAB PO PRN (22:25)
[2020-03-16] MEDS: Levothyroxine Sodium 125 MCG TAB PO SCH (05:51)
[2020-03-16 06:40] VITALS: BP 106/67; TEMP 97.8
[2020-03-16] MEDS: Heparin 5,000 UNITS/ML VIAL SC SCH (08:32)
[2020-03-16] MEDS: Aspirin 81 mg Enteric Coated Tablet PO SCH (08:33)
[2020-03-16] MEDS: Loratadine 10 MG TAB PO PRN (08:33)
[2020-03-16] MEDS: Lisinopril 5 MG TAB PO SCH (08:33)
[2020-03-16] MEDS: Oxybutynin 5 MG TAB PO SCH (08:33)
[2020-03-16] MEDS: Senokot S 8.6-50 MG TAB PO SCH (08:33)
[2020-03-16] MEDS: Carvedilol 3.125 MG TAB PO SCH (08:34)
[2020-03-16 12:44] VITALS: BMI 21.9
== END 2020-03-16 14:35 | disposition home or self-care (01) | DRG 947 ==
LOC: MADMS 17:15
PROVIDERS: ADMIT Family Medicine; ATTEND Family Medicine
DX: R53.1 Weakness (principal); G93.41 Metabolic encephalopathy; E87.1 Hypo-osmolality and hyponatremia; E44.0 Moderate protein-calorie malnutrition; I50.22 Chronic systolic (congestive) heart failure; R53.81 Other malaise; R13.11 Dysphagia, oral phase; I11.0 Hypertensive heart disease with heart failure; G30.9 Alzheimer's disease, unspecified; F02.80 Dementia in other diseases classified elsewhere, unspecified severity, without behavioral disturbance, psychotic disturbance, mood disturbance, and anxiety; E78.5 Hyperlipidemia, unspecified; R62.7 Adult failure to thrive; N32.81 Overactive bladder; D63.8 Anemia in other chronic diseases classified elsewhere; I48.0 Paroxysmal atrial fibrillation; I73.9 Peripheral vascular disease, unspecified; E03.9 Hypothyroidism, unspecified; Z88.1 Allergy status to other antibiotic agents; Z88.8 Allergy status to other drugs, medicaments and biological substances; Z86.73 Personal history of transient ischemic attack (TIA), and cerebral infarction without residual deficits; Z98.42 Cataract extraction status, left eye; Z98.41 Cataract extraction status, right eye; Z86.010 Personal history of colon polyps; Z88.0 Allergy status to penicillin; Z68.21 Body mass index [BMI] 21.0-21.9, adult
CPT/HCPCS: 36415; 80048; 84443; J1644